=== PATIENT | female | born 1990 | race Caucasian/White ===

== ENCOUNTER 2022-08-19 10:20 | Emergency (ER) | payer MEDICAID, OTHER ==
[~2022-08-19] VITALS: Ht 157.5 cm; Wt 72.7 kg
[~2022-08-19 10:20] MED LIST: GLIP5TAB3 PO; METF500T PO
[2022-08-19] MEDS ORDERED: INSU100I26 SQ (10:29)
[2022-08-19 10:45] LABS: COVID AG,FIA SOURCE NASAL SWAB
[2022-08-19 11:11] LABS: INFLUENZA TYPE A NEGATIVE FOR TYPE A (NEGATIVE); INFLUENZA TYPE B POSITIVE FOR TYPE B (NEGATIVE)
[2022-08-19] MEDS ORDERED: SODIUM CHLORIDE 0.9% 1,000 ML IV ONE (14:15)
[2022-08-19] MEDS ORDERED: ONDANSETRON HCL 4 MG/2 ML VIAL IVP ONE (14:15)
[2022-08-19 14:36] LABS: BASOPHILS % (AUTO) 0.4 % (0.0-2.0); EOSINOPHILS % (AUTO) 0.2 % (1.0-6.0); HEMATOCRIT 37.8 % (36-46); HEMOGLOBIN 12.4 g/dL (12.0-16.0); LYMPHOCYTES # (AUTO) 1.8 K/uL (1.0-4.8); MEAN CORPUSCULAR HGB CONC 32.7 G/dL (31.0-37.0); MEAN CORPUSCULAR VOLUME 89 fL (80-100); MONOCYTES % (AUTO) 5.7 % (2.0-9.0); NEUTROPHILS # (AUTO) 15.2 K/uL (1.8-7.7); NEUTROPHILS % (AUTO) 83.7 % (40.0-70.0); PLATELET COUNT (AUTO) 345 K/uL (150-450); RED BLOOD CELL COUNT(AUTO) 4.27 MIL/uL (4.00-5.20); RED CELL DISTRIBUTION WIDTH 13.6 % (11.5-14.5)
[2022-08-19 14:47] LABS: ANION GAP 7 mmol/L (8-16); CALCIUM, TOTAL 9.1 mg/dL (8.8-10.5); CARBON DIOXIDE 32 mmol/L (22-29); CHLORIDE 95 mmol/L (98-107); CREATININE 0.75 mg/dL (0.60-1.30); GLOMERULAR FILTR. RATE CALC > 60 mL/min (>60); GLUCOSE,RANDOM 299 mg/dL (70-110); POTASSIUM 4.2 mmol/L (3.5-5.1); SODIUM SERUM 134 mmol/L (136-145); UREA NITROGEN, BLOOD 8 mg/dL (7-18)
[2022-08-19 16:52] VITALS: BP 123/68
== END 2022-08-19 16:58 | disposition home or self-care (01) ==
LOC: EMS 10:23
DX: J10.1 Influenza due to other identified influenza virus with other respiratory manifestations (principal); D72.829 Elevated white blood cell count, unspecified; E11.65 Type 2 diabetes mellitus with hyperglycemia; Z20.822 Contact with and (suspected) exposure to COVID-19
CPT/HCPCS: 99284; 96374; 71045; 96361; 87426; 80048; 82962; 85025; 87804; 36415; J2405; J7030

== ENCOUNTER 2022-08-22 10:19 | Emergency (ER) | payer MEDICAID ==
[~2022-08-22] VITALS: Ht 149.9 cm; Wt 84.1 kg
[~2022-08-22 10:19] MED LIST changes: +INSU100I26 SQ; -METF500T PO
[2022-08-22] MEDS ORDERED: SODIUM CHLORIDE 0.9% 1,000 ML IV ONE (10:45)
[2022-08-22 11:13] LABS: BASOPHILS % (AUTO) 0.4 % (0.0-2.0); EOSINOPHILS % (AUTO) 1.4 % (1.0-6.0); HEMATOCRIT 37.6 % (36-46); HEMOGLOBIN 12.5 g/dL (12.0-16.0); LYMPHOCYTES # (AUTO) 1.7 K/uL (1.0-4.8); LYMPHOCYTES % (AUTO) 12.7 % (22.0-44.0); MEAN CORPUSCULAR HEMOGLOBIN 29.4 pg (26.0-34.0); MEAN CORPUSCULAR HGB CONC 33.2 G/dL (31.0-37.0); MEAN CORPUSCULAR VOLUME 89 fL (80-100); MONOCYTES # (AUTO) 0.9 K/uL (0.1-1.0); MONOCYTES % (AUTO) 6.5 % (2.0-9.0); NEUTROPHILS # (AUTO) 10.4 K/uL (1.8-7.7); PLATELET COUNT (AUTO) 372 K/uL (150-450); RED BLOOD CELL COUNT(AUTO) 4.24 MIL/uL (4.00-5.20); RED CELL DISTRIBUTION WIDTH 13.6 % (11.5-14.5)
[2022-08-22 11:22] LABS: ANION GAP 7 mmol/L (8-16); CALCIUM, TOTAL 9.3 mg/dL (8.8-10.5); CARBON DIOXIDE 30 mmol/L (22-29); CHLORIDE 99 mmol/L (98-107); CREATININE 0.77 mg/dL (0.60-1.30); GLOMERULAR FILTR. RATE CALC > 60 mL/min (>60); GLUCOSE,RANDOM 359 mg/dL (70-110); POTASSIUM 4.3 mmol/L (3.5-5.1); SODIUM SERUM 136 mmol/L (136-145); UREA NITROGEN, BLOOD 8 mg/dL (7-18)
[2022-08-22] MEDS ORDERED: KETOROLAC TROMETHAMINE 30 MG/ML VIAL IVP ONE (11:30)
[2022-08-22] MEDS ORDERED: METOCLOPRAMIDE HCL 5 MG/ML 2 ML VIAL IVP ONE (11:30)
[2022-08-22 11:39] LABS: ALANINE AMINOTRANSFERASE 17 U/L (12-78); ALBUMIN 3.1 g/dL (3.4-5.0); ALKALINE PHOSPHATASE 81 U/L (46-116); ASPARTATE AMINOTRANSFERASE 19 U/L (15-37); BILIRUBIN,TOTAL 0.3 mg/dL (0.1-1.0); HCG,QUANTITATIVE < 1 mIU/mL (0-6); LIPASE 76 U/L (73-393); TOTAL PROTEIN, SERUM 8.6 g/dL (6.4-8.2)
[2022-08-22] MEDS ORDERED: CEPH-558 PO (14:12)
[2022-08-22] MEDS ORDERED: TRAM-559 PO (14:14)
[2022-08-22 15:14] LABS: APPEARANCE,URINE HAZY (CLEAR); BILIRUBIN,URINE NEGATIVE (NEGATIVE); GLUCOSE, URINE (UA) >=1000 mg/dL (NEGATIVE); LEUKOCYTE ESTERASE ,URINE MODERATE (NEGATIVE); NITRATE,URINE NEGATIVE (NEGATIVE); OCCULT BLOOD,URINE NEGATIVE (NEGATIVE); PH,URINE 5.5 (5.0-8.0); PROTEIN,URINE 100-200,SEE CONFIRM mg/dL (NEGATIVE); SPECIFIC GRAVITIY, URINE 1.016 (1.003-1.030); UROBILINOGEN,URINE <=1.0 mg/dL (<=1.0)
[2022-08-22 15:25] VITALS: BP 114/76
[2022-08-22 15:27] LABS: RBC,URINE None Seen /HPF (0-2)
[2022-08-22 15:28] LABS: BACTERIA,URINE Many /HPF (None Seen); SQUAMOUS EPITHELIAL CELL,UR Moderate /LPF (None Seen)
[2022-08-22 15:29] LABS: SULFOSALICYLIC ACID,URINE 3+ (Negative)
[2022-08-22 15:31] LABS: BACTERIA,URINE Many /HPF (None Seen); RBC,URINE None Seen /HPF (0-2); SQUAMOUS EPITHELIAL CELL,UR Moderate /LPF (None Seen)
[2022-08-24] MEDS ORDERED: GLIP5TAB12 PO (14:37)
== END 2022-08-22 15:26 | disposition home or self-care (01) ==
LOC: EMS 10:22
DX: R10.32 Left lower quadrant pain (principal); J10.1 Influenza due to other identified influenza virus with other respiratory manifestations; N20.0 Calculus of kidney; E11.9 Type 2 diabetes mellitus without complications
CPT/HCPCS: 99285; 74176; 96374; 96361; 96375; 80053; 81001; 82962; 83690; 84702; 85025; 36415; 87086; 87186; 74022; J1885; J2765; J7030; 81002

== ENCOUNTER 2024-07-01 15:44 | Emergency (ER) | payer MEDICAID, OTHER ==
[~2024-07-01] VITALS: Ht 149.9 cm; Wt 65.9 kg
[~2024-07-01 15:44] MED LIST changes: +CEPH-558 PO; -GLIP5TAB3 PO; +INSLAN SQ; -INSU100I26 SQ; +TRAM50TA5 PO
[2024-07-01 15:46] VITALS: BP 127/88; PULSE 108; RESP 18; TEMP 98.6; O2SAT 99
[2024-07-01] MEDS ORDERED: ATOR20TA65 PO (16:45)
[2024-07-01] MEDS ORDERED: INSU100I93 SQ (16:45)
[2024-07-01] MEDS ORDERED: LISI5TAB21 PO (16:45)
[2024-07-01] MEDS ORDERED: SEMA0.258 SQ (16:45)
[2024-07-01] MEDS ORDERED: SITA100 PO (16:45)
[2024-07-01] MEDS ORDERED: NORE-72 PO (16:45)
[2024-07-01] MEDS ORDERED: EMPA25TA3 PO (16:45)
[2024-07-01] MEDS: IBUPROFEN 600 MG TABLET PO ONE (16:46)
[2024-07-01] MEDS: ACETAMINOPHEN 325 MG TABLET PO ONE (16:46)
== END 2024-07-01 17:08 | disposition home or self-care (01) ==
LOC: EMS 15:44
DX: S09.90XA Unspecified injury of head, initial encounter (principal); E11.9 Type 2 diabetes mellitus without complications; V89.2XXA Person injured in unspecified motor-vehicle accident, traffic, initial encounter; Y93.89 Activity, other specified; Y92.410 Unspecified street and highway as the place of occurrence of the external cause; Y99.8 Other external cause status
CPT/HCPCS: 99283